=== PATIENT | male | born 1960 | race Caucasian/White ===

== ENCOUNTER 2016-10-30 12:35 | Emergency (ER) | payer MEDICAID ==
[~2016-10-30] VITALS: Ht 182.9 cm; Wt 81.2 kg
[~2016-10-30 12:35] MED LIST: HYDR-3533 PO; PENI500T PO
[2016-10-30 12:46] VITALS: BP 112/75; PULSE 73; RESP 18; TEMP 97.5; O2SAT 98
[2016-10-30] MEDS ORDERED: VENTAER INH (13:43)
[2016-10-30] MEDS ORDERED: PROM6.256 PO (13:44)
[2016-10-30] MEDS: RESP: ALBUTEROL 2.5 MG/IPRATROPIUM 0.5 MG NEB (SCH) INH (13:44)
--- NOTE | 2016-10-30 13:44 | PD ---
HPI . Cough Chief Complaint: Cold / Flu Symptoms Time Seen by Provider: 13:34 Travel History International Travel<30 days: No Contact w/Intl Traveler<30days: No Traveled to known affect area: No History of Present Illness HPI Patient presents with a cough for the last 5 days. It is productive of clear phlegm. He has no associated fever. Cough is exacerbated by deep exhalation. He has not noted any relieving factors. He denies any previous similar history. Symptoms have been getting progressively worse. PFSH Past Medical History Medical History: Denies Significant Hx Tetanus Vaccination: > 5 Years Influenza Vaccination: No Past Surgical History Abdominal Surgery: Yes (umbilical hernia) Tonsillectomy: Yes Other Surgery: Yes (knee surgery) Social History Alcohol Use: Yes (occasional) Tobacco Use: Yes (1 ppd cigs) Substance Use: No Allergies-Medications (Allergen,Severity, Reaction): Coded Allergies: No Known Allergies (Unverified , 10/30/16) Reported Meds & Prescriptions Reported Meds & Active Scripts Active Promethazine-Codeine Liq 6.25-10 Mg/5 Ml Syrp 10 Ml PO Q4H PRN Ventolin Hfa 18 GM Inh (Albuterol Sulfate) 90 Mcg/Act Aer 2 Puff INH Q4H PRN Review of Systems Except as stated in HPI: all other systems reviewed are Neg General / Constitutional: No: Fever, Chills Respiratory: Positive: Cough, Wheezing Physical Exam Narrative GENERAL: Awake and alert and in no acute distress. SKIN: Warm and dry. HEAD: Atraumatic. Normocephalic. EYES: Pupils equal and round. NECK: Trachea midline. Neck is supple. CARDIOVASCULAR: Regular rate and rhythm. Heart sounds are normal. RESPIRATORY: No accessory muscle use. Diffuse expiratory wheezing. MUSCULOSKELETAL: No obvious deformities. No edema. NEUROLOGICAL: Awake and alert. No obvious cranial nerve deficits. Motor grossly within normal limits. Normal speech. PSYCHIATRIC: Appropriate mood and affect; insight and judgment normal. Data Data Last Documented VS Vital Signs Date Time Temp Pulse Resp B/P Pulse Ox O2 Delivery O2 Flow Rate FiO2 10/30/16 13:35 18 98 Room Air 10/30/16 12:46 97.5 73 112/75 Orders Albuterol-Ipratropium Neb (Duoneb Neb) (10/30/16 13:45) Dexamethasone Inj (Decadron Inj) (10/30/16 13:45) [facility] Medical Decision Making Medical Screen Exam Complete: Yes Emergency Medical Condition: Yes Differential Diagnosis Differential diagnosis includes but is not limited to viral respiratory illness , bronchitis, pneumonia, allergies, CHF, asthma/COPD. Narrative Course Patient presents with cough and wheezing. I have ordered Decadron and breathing treatments. Diagnosis Primary Impression: Bronchitis Patient Instructions: Acute Bronchitis (DC), General Instructions Med/Other Pt SpecificInfo: Prescription(s) given Scripts Promethazine-Codeine Liq 6.25-10 Mg/5 Ml Syrp10 Ml PO Q4H PRN (COUGH AND/OR COLD SYMPTOMS) #180 ML Ref 0 Prov:Argelia Cardona MD 10/30/16 Albuterol 18 GM Inh (Ventolin Hfa 18 GM Inh)90 Mcg/Act Aer2 Puff INH Q4H PRN ( SHORTNESS OF BREATH) #1 INHALER Ref 0 Prov:Argelia Cardona MD 10/30/16 Disposition: 01 DISCHARGE HOME Condition: Stable Argelia Cardona MD October 30, 2016 13:44
[2016-10-30] MEDS ORDERED: DEXAMETHASONE SOD PHOS 4 MG/ML VIAL IM ONE (13:45)
== END 2016-10-30 14:30 | disposition home or self-care (01) ==
LOC: PHEFT 12:35
DX: J40 Bronchitis, not specified as acute or chronic (principal); F17.210 Nicotine dependence, cigarettes, uncomplicated
CPT/HCPCS: 94640; 94664; 96372; 99283; J1100

== ENCOUNTER 2017-09-19 09:36 | Emergency (ER) | payer MEDICAID ==
[~2017-09-19] VITALS: Ht 182.9 cm; Wt 82.5 kg
[~2017-09-19 09:36] MED LIST changes: -HYDR-3533 PO; -PENI500T PO; +PROM6.256 PO; +VENTAER INH
[2017-09-19 09:39] VITALS: BP 122/65; PULSE 74; RESP 19; TEMP 98; O2SAT 96
[2017-09-19] MEDS ORDERED: INHALER (09:51)
--- NOTE | 2017-09-19 09:58 | PD ---
HPI Chief Complaint: Respiratory Symptoms Time Seen by Provider: 09:49 Travel History International Travel<30 days: No Contact w/Intl Traveler<30days: No Traveled to known affect area: No History of Present Illness HPI 57 years old male complaining of shortness of breath. Patient has history of COPD. Patient states that the shortness of breath started about 4 days ago. Patient denies any fever chills. Patient complains of nasal congestion and sinus pressure. Patient states the cough is persistent and nonproductive. Patient states that he has occasional chest wall tightness. Patient denies any abdominal pain. Patient denies any nausea vomiting diarrhea. Patient has been using his inhaler at home. Patient has albuterol inhaler at home. PFSH Past Medical History COPD: Yes Diminished Hearing: No Respiratory: Yes (COPD) Tetanus Vaccination: Unknown Past Surgical History Abdominal Surgery: Yes (umbilical hernia) Tonsillectomy: Yes Other Surgery: Yes (knee surgery) Social History Alcohol Use: Yes (occasional) Tobacco Use: Yes (1 ppd cigs) Substance Use: No Allergies-Medications (Allergen,Severity, Reaction): Coded Allergies: No Known Allergies (Unverified Adverse Reaction, Unknown, 09/19/17) Reported Meds & Prescriptions Reported Meds & Active Scripts Active Ventolin Hfa 18 GM Inh (Albuterol Sulfate) 90 Mcg/Act Aer 2 Puff INH Q4H PRN Reported [Inhaler] Review of Systems General / Constitutional: No: Fever Eyes: No: Visual changes HENT: Positive: Sore Throat, Congestion, No: Headaches Cardiovascular: No: Chest Pain or Discomfort Respiratory: Positive: Shortness of Breath Gastrointestinal: No: Abdominal Pain Genitourinary: No: Dysuria Musculoskeletal: No: Pain Skin: No Rash Neurologic: No: Weakness Psychiatric: No: Depression Endocrine: No: Polydipsia Hematologic/Lymphatic: No: Easy Bruising Physical Exam Narrative GENERAL: Well-nourished, well-developed patient. SKIN: Focused skin assessment warm/dry. HEAD: Normocephalic. EYES: No scleral icterus. No injection or drainage. Throat: Nonerythematous. NECK: Supple, trachea midline. No JVD or lymphadenopathy. CARDIOVASCULAR: Regular rate and rhythm without murmurs, gallops, or rubs. RESPIRATORY: Breath sounds equal bilaterally. No accessory muscle use. Patient has mild to moderate expiratory wheezes bilaterally. No rhonchi. GASTROINTESTINAL: Abdomen soft, non-tender, nondistended. MUSCULOSKELETAL: No cyanosis, or edema. BACK: Nontender without obvious deformity. No CVA tenderness. Data Data Last Documented VS Vital Signs Date Time Temp Pulse Resp B/P (MAP) Pulse Ox O2 Delivery O2 Flow Rate FiO2 09/19/17 09:48 16 96 Room Air 09/19/17 09:39 98.0 74 122/65 (84) Orders Orders Chest, Single Ap (09/19/17 09:55) Albuterol-Ipratropium Neb (Duoneb Neb) (09/19/17 10:00) Dexamethasone Inj (Decadron Inj) (09/19/17 10:00) MDM Medical Decision Making Medical Screen Exam Complete: Yes Emergency Medical Condition: Yes Interpretation(s) Last Impressions Chest X-Ray 09/19/17954 Signed Impressions: Service Date/Time: Tuesday, September 19, 2017 10:26 - CONCLUSION: 1. COPD changes. Satnam Santana MD Differential Diagnosis Differential diagnoses include acute exacerbation COPD, bronchitis, pneumonia. Narrative Course 57 years old male with shortness of breath. History of COPD. Albuterol with Atrovent unit dose given 2. Decadron 8 mg IM. Diagnosis Primary Impression: COPD with acute exacerbation Patient Instructions: General Instructions Additional Instructions: Albuterol treatment as needed. Prednisone as directed. Follow-up with personal physician. Return if worse. Med/Other Pt SpecificInfo: Prescription(s) given Scripts Prednisone (Prednisone) 20 Mg Tab 20 MG PO BID, #10 TAB 0 Refills Prov: Mak Adams MD 09/19/17 Ipratropium Neb (Ipratropium Neb) 0.5 Mg/2.5 Ml Amp 0.5 MG NEB Q4HR NEB for Breathing Treatment, #60 NEBULE 0 Refills Prov: Mak Adams MD 09/19/17 Albuterol Neb (Albuterol Neb) 2.5 Mg/3 Ml Neb 2.5 MG NEB Q4HR NEB for Breathing Treatment, #60 NEBULE 0 Refills While awake Prov: Mak Adams MD 09/19/17 Nebulizer Kit/Tubing/Mout (Nebulizer Kit/Tubing/Mout) 1 Kit Kit KIT .XX DIRECTED for Breathing Treatment, #1 0 Refills Nebulizer treatment as needed every 4 hours for shortness of breath. Prov: Mak Adams MD 09/19/17 Disposition: 01 DISCHARGE HOME Condition: Stable Mak Adams MD Sep 19, 2017 09:58
[2017-09-19] MEDS ORDERED: DEXAMETHASONE SOD PHOS 4 MG/ML VIAL IM ONE (10:00)
[2017-09-19] MEDS: RESP: ALBUTEROL 2.5 MG/IPRATROPIUM 0.5 MG NEB (SCH) INH (10:03)
--- NOTE | 2017-09-19 10:48 | RADRPT ---
EXAM DATE/TIME: 09/19/2017 10:26 [place] COMPARISON: No previous studies available for comparison. INDICATIONS : Short of Breath MEDICAL HISTORY : None. SURGICAL HISTORY : None. ENCOUNTER: Initial ACUITY: 1 day PAIN SCORE: 0/10 LOCATION: chest FINDINGS: The heart is normal in size. The mediastinal contours are within normal limits. There are COPD change s within the pulmonary parenchyma. The visualized bony structures are grossly intact. CONCLUSION: 1. COPD changes. Satnam Santana MD on September 19, 2017 at 10:44 Board Certified Radiologist. This report was verified electronically.
[2017-09-19] MEDS ORDERED: ALBU0.08 NEB (11:33)
[2017-09-19] MEDS ORDERED: IPRA0.02 NEB (11:33)
[2017-09-19] MEDS ORDERED: NEBUKIT5 (11:33)
[2017-09-19] MEDS ORDERED: PRED20 PO (11:33)
[2017-09-19 11:37] VITALS: BP 113/60; PULSE 66; RESP 18; O2SAT 97
== END 2017-09-19 11:47 | disposition home or self-care (01) ==
LOC: PHED 09:36
DX: J44.1 Chronic obstructive pulmonary disease with (acute) exacerbation (principal); F17.210 Nicotine dependence, cigarettes, uncomplicated
CPT/HCPCS: 71045; 94640; 94664; 96372; 99283; J1100